=== PATIENT | male | born 1950 | race Caucasian/White ===

== ENCOUNTER → 2018-01-06 | Outpatient (CLI) | payer MEDICARE, MEDICAID ==
[~2018-01-06] MED LIST: AC325T PO; ASP325T PO; ASP81TEC PO; BNZ10T; BSP10T PO; CARV12.52; CATHETER FLUSH 10 ML SYR IV PRN; CLOP75TA; DIPH50CA PO; GBPN100C; GBPN300C PO; LISI20TA PO; LNS30CCR; LORA10CA PO; MULT-298 PO; NIAC1CAP PO; OMEG1CAP53 PO; OXYC-188; POLY119P PO; RAMI10CA; REGADENOSON 0.4 MG/5 ML SYR (LEXISCAN) IV ONE; RNT150T PO; SIMV40TA2 PO; SIMV80TA3; SUCR1TAB; miralax PO
[2018-01-06 09:29] VITALS: BP 193/114
--- NOTE | 2018-01-06 19:23 | STRESS TEST ---
DATE OF SERVICE: 01/06/2018 LEXISCAN MYOVIEW STRESS TEST REPORT REFERRING PHYSICIAN: Dr. Lj Cardozo at [facility]. Baseline heart rate is 85. Baseline blood pressure 199/113. Baseline EKG is sinus rhythm with no ischemic changes. In summary, the patient was injected with 10.52 mCi of technetium-99 Myoview and the resting images were obtained. Then, the patient received 0.4 mg of Lexiscan followed by 31.1 mCi of technetium-99 Myoview. Throughout the test, there were no EKG changes. The resting and stress images were reviewed and compared in the short axis, horizontal long axis, and vertical long axis views. Review of the images showed diaphragmatic attenuation with mild decreased uptake at the mid to apical inferior wall and inferolateral wall. SSS is 6. SDS 6. TID value 0.9. On the gated images, the left ventricle appeared to be in normal size with normal contractility. Calculated ejection fraction 73%. CONCLUSION: 1. The patient tolerated Lexiscan well. 2. Baseline hypertension persisted throughout test. 3. Diaphragmatic attenuation with mild reversible ischemia involving the mid to apical inferior wall and inferolateral wall. 4. Normal left ventricular size with normal contractility. Calculated ejection fraction 73%. Job ID: [id number] DocumentID: [id number] Dictated Date: 01/06/2018 16:17:14 Human Capital Manager Date: 01/06/2018 18:40:45 Dictated By: HAN BLAKELY MD
== END ==
LOC: CARD 07:34
PROVIDERS: ATTEND Physician Assistant
DX: I25.10 Atherosclerotic heart disease of native coronary artery without angina pectoris (principal); I11.0 Hypertensive heart disease with heart failure; I50.9 Heart failure, unspecified; E78.5 Hyperlipidemia, unspecified
CPT/HCPCS: 78452; 93017

== ENCOUNTER 2018-02-26 07:23 | Day surgery (SDC) | payer MEDICARE, MEDICAID ==
[~2018-02-26] VITALS: Ht 175.3 cm; Wt 83.5 kg
[2018-02-26] VITALS (11 sets, daily range): BP systolic 120–183; BP diastolic 74–103
[~2018-02-26 07:23] MED LIST changes: -CATHETER FLUSH 10 ML SYR IV PRN; -REGADENOSON 0.4 MG/5 ML SYR (LEXISCAN) IV ONE
--- OUTSIDE RECORDS SUMMARY | 2018-02-26 07:26 | XMS REPORT ---
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
--- OUTSIDE RECORDS SUMMARY | 2018-02-26 07:26 | XMS REPORT ---
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
--- OUTSIDE RECORDS SUMMARY | 2018-02-26 07:26 | XMS REPORT ---
Author YESENIA Novak [facility] e[employer] Address Unknown Phone Unavailable Care Team Providers Care Binder Selector Name Role Phone YESENIA PUGA CP Unavailable Allergies, Adverse Reactions, Alerts Substance Reaction Event Type N.K.D.A. Info Not Available Non Drug Allergy Problems Problem Type Condition Code Onset Dates Condition Status Assessment Hyperlipidemia 272.4 Active Assessment Essential hypertension, benign 401.1 Active Problem Family history, Colonic polyps V18.51 [...] Instructions Start Date End Date Status Dosage Carvedilol [facility] [address]-87 12.5 MG Orally Twice a day 1 tablet Lisinopril [facility] [address]-39 2.5 MG Orally Once a day 1 tablet Neurontin [facility] [address]-50 800 MG Three times a day 1 Tablet by Oral route 3 times per day PRN for pain Aspirin [facility] [address]-08 325 mg December 29, 2012 take 1 tablet ( 325 mg) by oral route once daily Michael Bautistaetto [facility] [address]-41 500 mg Jun 02, 2013 not defined Multivitamins [facility] 68434-48517 Orally not defined Sucralfate [facility] [address]-57 1 GM Orally Twice a day 1 tablet on an empty stomach BusPIRone HCl [facility] [address]-79 10 MG Orally Twice a day Sep 14, 2015 1 tablet Ranitidine [facility] 0 Oral 1 tab Fish Oil [facility] [address]-13 1000 mg Oct 22, 2011 SIG: orally 2 times a day Glucosamine Relief [facility] 25[address]8688 1,000 mg December 29, 2012 1 Tablet 1 time per day Procedures Procedure Coding System Code Date COMPLETE CBC W/AUTO DIFF WBC CPT-4 34849 Sep 14, 2015 LIPID PANEL CPT-4 05444 Sep 14, 2015 Office Visit, Est Pt., Level 3 CPT-4 82410 Sep 14, 2015 VENIPUNCT, ROUTINE* CPT-4 85165 Sep 14, 2015 COMPREHEN METABOLIC PANEL CPT-4 64559 Sep 14, 2015 Vital Signs Date/Time: Sep 14, 2015 Temperature 97.0 F Weight 179.7 lbs Height 69 in BMI 26.53 Index Blood Pressure Diastolic 86 mmHg Blood Pressure Systolic 136 mmHg Cardiac Monitoring Heart Rate 76 bpm Results Name Result Date Reference Range Unit Abnormality Flag ROUTINE VENIPUNCTURE Summary Purpose [employer] Submission
--- OUTSIDE RECORDS SUMMARY | 2018-02-26 07:26 | XMS REPORT ---
Author Author СЕРГЕЙ BLANK [facility] e[employer] Address Unknown Phone Unavailable Care Team Providers Care Cs Associate Name Role Phone СЕРГЕЙ BLANK CP Unavailable [...] System Code Date SINGLE IMMUNIZATION ADMIN CPT-4 56480 Jul 25, 2016 FLUARIX QUAD P-FREE 3 AND UP .50 2015 CPT-4 21046 Jul 25, 2016 Results No Known Results Immunizations Vaccine Administration Date FLUARIX QUAD P-FREE 3 AND UP .50 2015Jul 25, 2016 Summary Purpose [employer]Works Submission
--- OUTSIDE RECORDS SUMMARY | 2018-02-26 07:28 | XMS REPORT | Continuity of Care Document ---
Author Author Formerly [facility], [facility] Address Unknown Phone Unavailable Allergies Active Description Code Type Severity Reaction Onset Reported/Identified Relationship to Patient Clinical Status Yes No Known Drug Allergies [id number] Drug Allergy Unknown N/A 05/03/2008 Medications There is no data. Problems Date Dx Coded Attending Type Code Diagnosis Diagnosed By 06/11/2008 DOMENICO JUSTICE DO V72.83 PRE-OPERATIVE EXAMINATION 06/11/2008 YESENIA PUGA APRN V72.83 PRE-OPERATIVE EXAMINATION 06/11/2008 V72.83 PRE- OPERATIVE EXAMINATION 06/11/2008 V72.83 PRE- OPERATIVE EXAMINATION 06/11/2008 V72.83 PRE- OPERATIVE EXAMINATION 06/11/2008 DOMENICO JUSTICE DO V72.83 PRE-OPERATIVE EXAMINATION 06/11/2008 YESENIA PUGA APRN V72.83 PRE-OPERATIVE EXAMINATION 03/08/2009 DOMENICO JUSTICE DO 338.4 PAIN CHRONIC SYNDROME 03/08/2009 YESENIA PUGA APRN 338.4 PAIN CHRONIC SYNDROME 03/08/2009 338.4 PAIN CHRONIC SYNDROME 03/08/2009 338.4 PAIN CHRONIC SYNDROME 03/08/2009 338.4 PAIN CHRONIC SYNDROME 03/08/2009 DOMENICO JUSTICE DO 338.4 PAIN CHRONIC SYNDROME 03/08/2009 YESENIA PUGA APRN 338.4 PAIN CHRONIC SYNDROME 06/29/2009 DOMENICO JUSTICE DO 787.20 difficulty swallowing (dysphagia) 06/29/2009 YESENIA PUGA APRN 787.20 difficulty swallowing (dysphagia) 06/29/2009 787.20 DIFFICULTY SWALLOWING (DYSPHAGIA) 06/29/2009 787.20 DIFFICULTY SWALLOWING (DYSPHAGIA) 06/29/2009 787.20 DIFFICULTY SWALLOWING (DYSPHAGIA) 06/29/2009 DOMENICO JUSTICE DO 787.20 DIFFICULTY SWALLOWING (DYSPHAGIA) 06/29/2009 YESENIA PUGA APRN 787.20 DIFFICULTY SWALLOWING (DYSPHAGIA) 02/24/2010 DOMENICO JUSTICE DO 300.00 ANXIETY UNSPEC 02/24/2010 DOMENICO JUSTICE DO 357.9 NEUROPATHY UNSP 02/24/2010 DOMENICO JUSTICE DO K 840.9 SPRAIN/STRAIN SHOULDER/ARM 02/24/2010 YESENIA PUGA APRN 300.00 ANXIETY UNSPEC 02/24/2010 YESENIA PUGA APRN 357.9 NEUROPATHY UNSP 02/24/2010 YESENIA PUGA APRN 840.9 SPRAIN/STRAIN SHOULDER/ARM 02/24/2010 300.00 ANXIETY UNSPEC 02/24/2010 357.9 NEUROPATHY UNSP 02/24/2010 840.9 SPRAIN/STRAIN SHOULDER/ARM 02/24/2010 300.00 ANXIETY UNSPEC 02/24/2010 357.9 NEUROPATHY UNSP 02/24/2010 840.9 SPRAIN/STRAIN SHOULDER/ARM 02/24/2010 300.00 ANXIETY UNSPEC 02/24/2010 357.9 NEUROPATHY UNSP 02/24/2010 840.9 SPRAIN/STRAIN SHOULDER/ARM 02/24/2010 DOMENICO JUSTICE DO K 300.00 ANXIETY UNSPEC 02/24/2010 DOMENICO JUSTICE DO K 357.9 NEUROPATHY UNSP 02/24/2010 DOMENICO JUSTICE DO K 840.9 SPRAIN/STRAIN SHOULDER/ARM 02/24/2010 YESENIA PUGA APRN 300.00 ANXIETY UNSPEC 02/24/2010 YESENIA PUGA APRN 357.9 NEUROPATHY UNSP 02/24/2010 YESENIA PUGA APRN 840.9 SPRAIN/STRAIN SHOULDER/ARM 06/30/2010 DOMENICO JUSTICE DO 414.00 CORONARY ATHEROSCLEROSIS OF UNSPECIFIED TYPE OF VESSEL [place] OR [place] 06/30/2010 YESENIA PUGA APRN 414.00 CORONARY ATHEROSCLEROSIS OF UNSPECIFIED TYPE OF VESSEL [place] OR GRAFT 06/30/2010 414.00 CORONARY ATHEROSCLEROSIS OF UNSPECIFIED TYPE OF VESSEL [place] OR GRAFT 06/30/2010 414.00 CORONARY ATHEROSCLEROSIS OF UNSPECIFIED TYPE OF VESSEL [place] OR GRAFT 06/30/2010 414.00 CORONARY ATHEROSCLEROSIS OF UNSPECIFIED TYPE OF VESSEL [place] OR GRAFT 06/30/2010 DOMENICO JUSTICE DO 414.00 CORONARY ATHEROSCLEROSIS OF UNSPECIFIED TYPE OF VESSEL [place] OR GRAFT 06/30/2010 YESENIA PUGA APRN 414.00 CORONARY ATHEROSCLEROSIS OF UNSPECIFIED TYPE OF VESSEL [place] OR GRAFT 09/22/2010 DOMENICO JUSTICE DO 608.9 UNSPECIFIED DISORDER OF MALE GENITAL ORGANS 09/22/2010 YESENIA PUGA APRN 608.9 UNSPECIFIED DISORDER OF MALE GENITAL ORGANS 09/22/2010 608.9 UNSPECIFIED DISORDER OF MALE GENITAL ORGANS 09/22/2010 608.9 UNSPECIFIED DISORDER OF MALE GENITAL ORGANS 09/22/2010 608.9 UNSPECIFIED DISORDER OF MALE GENITAL ORGANS 09/22/2010 DOMENICO JUSTICE DO 608.9 UNSPECIFIED DISORDER OF MALE GENITAL ORGANS 09/22/2010 YESENIA PUGA APRN 608.9 UNSPECIFIED DISORDER OF MALE GENITAL ORGANS 09/29/2010 DOMENICO JUSTICE DO K 604.90 ORCHITIS AND EPIDIDYMITIS UNSPECIFIED 09/29/2010 YESENIA PUGA APRN 604.90 ORCHITIS AND EPIDIDYMITIS UNSPECIFIED 09/29/2010 604.90 ORCHITIS AND EPIDIDYMITIS UNSPECIFIED 09/29/2010 604.90 ORCHITIS AND EPIDIDYMITIS UNSPECIFIED 09/29/2010 604.90 ORCHITIS AND EPIDIDYMITIS UNSPECIFIED 09/29/2010 DOMENICO JUSTICE DO K 604.90 ORCHITIS AND EPIDIDYMITIS UNSPECIFIED 09/29/2010 YESENIA PUGA APRN 604.90 ORCHITIS AND EPIDIDYMITIS UNSPECIFIED 11/01/2010 DOMENICO JUSTICE DO K 597.80 URETHRITIS UNSPECIFIED 11/01/2010 YESENIA PUGA APRN 597.80 URETHRITIS UNSPECIFIED 11/01/2010 597.80 URETHRITIS UNSPECIFIED 11/01/2010 597.80 URETHRITIS UNSPECIFIED 11/01/2010 597.80 URETHRITIS UNSPECIFIED 11/01/2010 DOMENICO JUSTICE DO K 597.80 URETHRITIS UNSPECIFIED 11/01/2010 YESENIA PUGA APRN 597.80 URETHRITIS UNSPECIFIED 11/15/2010 DOMENICO JUSTICE DO K V70.0 NORMAL ROUTINE HISTORY AND PHYSICAL 11/15/2010 YESENIA PUGA APRN V70.0 NORMAL ROUTINE HISTORY AND PHYSICAL 11/15/2010 V70.0 NORMAL ROUTINE HISTORY AND PHYSICAL 11/15/2010 V70.0 NORMAL ROUTINE HISTORY AND PHYSICAL 11/15/2010 V70.0 NORMAL ROUTINE HISTORY AND PHYSICAL 11/15/2010 DOMENICO JUSTICE DO K V70.0 NORMAL ROUTINE HISTORY AND PHYSICAL 11/15/2010 YESENIA PUGA APRN V70.0 NORMAL ROUTINE HISTORY AND PHYSICAL 04/06/2011 DOMENICO JUSTICE DO K 729.5 PAIN IN LIMB 04/06/2011 DOMENICO JUSTICE DO 788.1 DYSURIA 04/06/2011 YESENIA PUGA APRN 729.5 PAIN IN LIMB 04/06/2011 YESENIA PUGA APRN 788.1 DYSURIA 04/06/2011 729.5 PAIN IN LIMB 04/06/2011 788.1 DYSURIA 04/06/2011 729.5 PAIN IN LIMB 04/06/2011 788.1 DYSURIA 04/06/2011 729.5 PAIN IN LIMB 04/06/2011 788.1 DYSURIA 04/06/2011 DOMENICO JUSTICE DO 729.5 PAIN IN LIMB 04/06/2011 DOMENICO JUSTICE DO 788.1 DYSURIA 04/06/2011 YESENIA PUGA APRN 729.5 PAIN IN LIMB 04/06/2011 YESENIA PUGA APRN 788.1 DYSURIA 11/05/2011 DOMENICO JUSTICE DO V18.51 FAMILY HISTORY OF COLONIC POLYPS 11/05/2011 DOMENICO JUSTICE DO V76.51 SPECIAL SCREENING FOR MALIGNANT NEOPLASMS COLON 11/05/2011 YESENIA PUGA APRN V18.51 FAMILY HISTORY OF COLONIC POLYPS 11/05/2011 YESENIA PUGA APRN V76.51 SPECIAL SCREENING FOR MALIGNANT NEOPLASMS COLON 11/05/2011 V18.51 FAMILY HISTORY OF COLONIC POLYPS 11/05/2011 V76.51 SPECIAL SCREENING FOR MALIGNANT NEOPLASMS COLON 11/05/2011 V18.51 FAMILY HISTORY OF COLONIC POLYPS 11/05/2011 V76.51 SPECIAL SCREENING FOR MALIGNANT NEOPLASMS COLON 11/05/2011 V18.51 FAMILY HISTORY OF COLONIC POLYPS 11/05/2011 V76.51 SPECIAL SCREENING FOR MALIGNANT NEOPLASMS COLON 11/05/2011 DOMENICO JUSTICE DO V18.51 FAMILY HISTORY OF COLONIC POLYPS 11/05/2011 DOMENICO JUSTICE DO V76.51 SPECIAL SCREENING FOR MALIGNANT NEOPLASMS COLON 11/05/2011 YESENIA PUGA APRN V18.51 FAMILY HISTORY OF COLONIC POLYPS 11/05/2011 YESENIA PUGA APRN V76.51 SPECIAL SCREENING FOR MALIGNANT NEOPLASMS COLON 06/19/2012 Ot 401.1 BENIGN HYPERTENSION 06/19/2012 Ot 414.00 CORON ATHEROSCLER NOS TYPE VESSEL, NATIV 06/19/2012 Ot 433.10 CAROTID ARTERY OCCLUSION W O CEREBRAL IN 06/19/2012 Ot 440.20 ATHEROSCLEROSIS [place] ARTERIES EXTREMIT 06/19/2012 Ot V15.82 HISTORY OF TOBACCO USE 04/06/2013 790.29 HYPERGLYCEMIA 04/06/2013 790.29 HYPERGLYCEMIA 04/06/2013 790.29 HYPERGLYCEMIA 04/06/2013 DOMENICO JUSTICE DO 790.29 HYPERGLYCEMIA 04/06/2013 YESENIA PUGA APRN 790.29 HYPERGLYCEMIA 06/26/2013 608.9 UNSPECIFIED DISORDER OF MALE GENITAL ORGANS 06/26/2013 DOMENICO JUSTICE DO 608.9 UNSPECIFIED DISORDER OF MALE GENITAL ORGANS 06/26/2013 YESENIA PUGA APRN 608.9 UNSPECIFIED DISORDER OF MALE GENITAL ORGANS 07/07/2013 DOMENICO JUSTICE DO V04.81 FLU SHOT 07/07/2013 YESENIA PUGA APRN V04.81 FLU SHOT 11/19/2014 YESENIA PUGA APRN 401.1 HYPERTENSION, BENIGN ESSENTIAL 11/19/2014 YESENIA PUGA APRN V03.82 PPV23 (PNEUMOVAX) DX 07/15/2015 GENOVEVA CHAVEZ Ot 272.4 07/15/2015 GENOVEVA CHAVEZ Ot 401.9 07/15/2015 GENOVEVA CHAVEZ Ot 414.9 07/15/2015 GENOVEVA CHAVEZ Ot 428.0 2016 Ot 401.9 HYPERTENSION NOS 2016 Ot 414.00 CORON ATHEROSCLER NOS TYPE VESSEL, NATIV 2016 Ot 401.9 HYPERTENSION NOS 2016 Ot 414.00 CORON ATHEROSCLER NOS TYPE VESSEL, NATIV 2016 Ot 433.10 CAROTID ARTERY OCCLUSION W O CEREBRAL IN 2016 Ot V72.63 PRE- PROCEDURAL LABORATORY EXAMINATION 2016 Ot V72.83 EXAM PRE- OPERATIVE NEC 2016 Ot V74.8 SCREEN- BACTERIAL DIS NEC 2016 Ot 401.9 HYPERTENSION NOS 2016 Ot 428.0 CONGESTIVE HEART FAILURE NOS 2016 REDDY PEREIRA, HAN Navarro Ot 272.4 HYPERLIPIDEMIA NEC/NOS 2016 HAN BLAKELY MD Ot 397.0 TRICUSPID VALVE DISEASE 2016 HAN BLAKELY MD Ot 401.9 HYPERTENSION NOS 2016 HAN BLAKELY MD Ot 414.00 CORON ATHEROSCLER NOS TYPE VESSEL, NATIV 2016 REDDY PEREIRA, HAN Navarro Ot 428.0 CONGESTIVE HEART FAILURE NOS 2016 REDDY PEREIRA, HAN Navarro Ot 414.01 CORONARY ATHEROSCLEROSIS OF [place] CORON 2016 HAN BLAKELY MD Ot 428.0 CONGESTIVE HEART FAILURE NOS 2016 GENOVEVA CHAVEZ Ot 272.4 HYPERLIPIDEMIA NEC/NOS 2016 GENOVEVA CHAVEZ Ot 401.9 HYPERTENSION NOS 2016 GENOVEVA CHAVEZ Ot 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 HRT DIS NOS 2016 GENOVEVA CHAVEZ Ot 428.0 CONGESTIVE HEART FAILURE NOS 06/15/2016 GENOVEVA CHAVEZ Ot E78.2 MIXED HYPERLIPIDEMIA 06/15/2016 GENOVEVA CHAVEZ Ot I25.10 ATHSCL HEART DISEASE OF [place] CORONARY 06/15/2016 GENOVEVA CHAVEZ Ot I50.22 CHRONIC SYSTOLIC (CONGESTIVE) HEART FAIL 06/15/2016 GENOVEVA CHAVEZ Ot I65.23 OCCLUSION AND STENOSIS OF [place] 06/29/2016 GENOVEVA CHAVEZ Ot E78.2 MIXED HYPERLIPIDEMIA 06/29/2016 GENOVEVA CHAVEZ Ot I25.10 ATHSCL HEART DISEASE OF [place] CORONARY 06/29/2016 GENOVEVA CHAVEZ Ot I50.22 CHRONIC SYSTOLIC (CONGESTIVE) HEART FAIL 06/29/2016 GENOVEVA CHAVEZ Ot I65.23 OCCLUSION AND STENOSIS OF [place] 07/17/2016 GENOVEVA CHAVEZ Ot I65.22 OCCLUSION AND STENOSIS OF LEFT CAROTID A 07/18/2016 Ot 401.9 HYPERTENSION NOS 07/18/2016 Ot 414.00 CORON ATHEROSCLER NOS TYPE VESSEL, NATIV 07/18/2016 Ot 401.9 HYPERTENSION NOS 07/18/2016 Ot 414.00 CORON ATHEROSCLER NOS TYPE VESSEL, NATIV 07/18/2016 Ot 433.10 CAROTID ARTERY OCCLUSION W O CEREBRAL IN 07/18/2016 Ot V72.63 PRE- PROCEDURAL LABORATORY EXAMINATION 07/18/2016 Ot V72.83 EXAM PRE- OPERATIVE NEC 07/18/2016 Ot V74.8 SCREEN- BACTERIAL DIS NEC 07/18/2016 Ot 401.9 HYPERTENSION NOS 07/18/2016 Ot 428.0 CONGESTIVE HEART FAILURE NOS 07/18/2016 HAN BLAKELY MD Ot 272.4 HYPERLIPIDEMIA NEC/NOS 07/18/2016 HAN BLAKELY MD Ot 397.0 TRICUSPID VALVE DISEASE 07/18/2016 HAN BLAKELY MD Ot 401.9 HYPERTENSION NOS 07/18/2016 HAN BLAKELY MD Ot 414.00 CORON ATHEROSCLER NOS TYPE VESSEL, NATIV 07/18/2016 HAN BLAKELY MD Ot 428.0 CONGESTIVE HEART FAILURE NOS 07/18/2016 HAN BLAKELY MD Ot 414.01 CORONARY ATHEROSCLEROSIS OF [place] CORON 07/18/2016 HAN BLAKELY MD Ot 428.0 CONGESTIVE HEART FAILURE NOS 07/18/2016 GENOVEVA CHAVEZ Ot 272.4 HYPERLIPIDEMIA NEC/NOS 07/18/2016 GENOVEVA CHAVZE Ot 401.9 HYPERTENSION NOS 07/18/2016 GENOVEVA CHAVEZ Ot 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 HRT DIS NOS 07/18/2016 GENOVEVA CHAVEZ Ot 428.0 CONGESTIVE HEART FAILURE NOS 07/18/2016 GENOVEVA CHAVEZ Ot I65.22 OCCLUSION AND STENOSIS OF LEFT CAROTID A 07/18/2016 GENOVEVA CHAVEZ Ot E78.2 MIXED HYPERLIPIDEMIA 07/18/2016 GENOVEVA CHAVEZ Ot I25.10 ATHSCL HEART DISEASE OF [place] CORONARY 07/18/2016 GENOVEVA CHAVEZ Ot I50.22 CHRONIC SYSTOLIC (CONGESTIVE) HEART FAIL 07/18/2016 GENOVEVA CHAVEZ Ot I65.23 OCCLUSION AND STENOSIS OF [place] 09/06/2016 Ot 401.9 HYPERTENSION NOS 09/06/2016 Ot 414.00 CORON ATHEROSCLER NOS TYPE VESSEL, NATIV 09/06/2016 Ot 401.9 HYPERTENSION NOS 09/06/2016 Ot 414.00 CORON ATHEROSCLER NOS TYPE VESSEL, NATIV 09/06/2016 Ot 433.10 CAROTID ARTERY OCCLUSION W O CEREBRAL IN 09/06/2016 Ot V72.63 PRE- PROCEDURAL LABORATORY EXAMINATION 09/06/2016 Ot V72.83 EXAM PRE- OPERATIVE NEC 09/06/2016 Ot V74.8 SCREEN- BACTERIAL DIS NEC 09/06/2016 Ot 401.9 HYPERTENSION NOS 09/06/2016 Ot 428.0 CONGESTIVE HEART FAILURE NOS 09/06/2016 HAN BLAKELY MD Ot 272.4 HYPERLIPIDEMIA NEC/NOS 09/06/2016 HAN BLAKELY MD Ot 397.0 TRICUSPID VALVE DISEASE 09/06/2016 HAN BLAKELY MD Ot 401.9 HYPERTENSION NOS 09/06/2016 HAN BLAKELY MD Ot 414.00 CORON ATHEROSCLER NOS TYPE VESSEL, NATIV 09/06/2016 HAN BLAKELY MD Ot 428.0 CONGESTIVE HEART FAILURE NOS 09/06/2016 HAN BLAKELY MD Ot 414.01 CORONARY ATHEROSCLEROSIS OF [place] CORON 09/06/2016 HAN BLAKELY MD Ot 428.0 CONGESTIVE HEART FAILURE NOS 09/06/2016 GENOVEVA CHAVEZ Ot 272.4 HYPERLIPIDEMIA NEC/NOS 09/06/2016 GENOVEVA CHAVEZ Ot 401.9 HYPERTENSION NOS 09/06/2016 GENOVEVA CHAVEZ Ot 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 HRT DIS NOS 09/06/2016 GENOVEVA CHAVEZ Ot 428.0 CONGESTIVE HEART FAILURE NOS 09/06/2016 GENOVEVA CHAVEZ Ot I65.22 OCCLUSION AND STENOSIS OF LEFT CAROTID A 09/06/2016 GENOVEVA CHAVEZ Ot E78.2 MIXED HYPERLIPIDEMIA 09/06/2016 GENOVEVA CHAVEZ Ot I25.10 ATHSCL HEART DISEASE OF [place] CORONARY 09/06/2016 GENOVEVA CHAVEZ Ot I50.22 CHRONIC SYSTOLIC (CONGESTIVE) HEART FAIL 09/06/2016 GENOVEVA CHAVEZ Ot I65.23 OCCLUSION AND STENOSIS OF [place] 10/07/2016 Ot 401.9 HYPERTENSION NOS 10/07/2016 Ot 414.00 CORON ATHEROSCLER NOS TYPE VESSEL, NATIV 10/07/2016 Ot 401.9 HYPERTENSION NOS 10/07/2016 Ot 414.00 CORON ATHEROSCLER NOS TYPE VESSEL, NATIV 10/07/2016 Ot 433.10 CAROTID ARTERY OCCLUSION W O CEREBRAL IN 10/07/2016 Ot V72.63 PRE- PROCEDURAL LABORATORY EXAMINATION 10/07/2016 Ot V72.83 EXAM PRE- OPERATIVE NEC 10/07/2016 Ot V74.8 SCREEN- BACTERIAL DIS NEC 10/07/2016 Ot 401.9 HYPERTENSION NOS 10/07/2016 Ot 428.0 CONGESTIVE HEART FAILURE NOS 10/07/2016 HAN BLAKELY MD Ot 272.4 HYPERLIPIDEMIA NEC/NOS 10/07/2016 HAN BLAKELY MD Ot 397.0 TRICUSPID VALVE DISEASE 10/07/2016 HAN BLAKELY MD Ot 401.9 HYPERTENSION NOS 10/07/2016 HAN BLAKELY MD Ot 414.00 CORON ATHEROSCLER NOS TYPE VESSEL, NATIV 10/07/2016 HAN BLAKELY MD Ot 428.0 CONGESTIVE HEART FAILURE NOS 10/07/2016 HAN BLAKELY MD Ot 414.01 CORONARY ATHEROSCLEROSIS OF [place] CORON 10/07/2016 HAN BLAKELY MD Ot 428.0 CONGESTIVE HEART FAILURE NOS 10/07/2016 GENOVEVA CHAVEZ Ot 272.4 HYPERLIPIDEMIA NEC/NOS 10/07/2016 GENOVEVA CHAVEZ Ot 401.9 HYPERTENSION NOS 10/07/2016 GENOVEVA CHAVEZ Ot 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 HRT DIS NOS 10/07/2016 GENOVEVA CHAVEZ Ot 428.0 CONGESTIVE HEART FAILURE NOS 10/07/2016 GENOVEVA CHAVEZ Ot I65.22 OCCLUSION AND STENOSIS OF LEFT CAROTID A 10/07/2016 GENOVEVA CHAVEZ Ot E78.2 MIXED HYPERLIPIDEMIA 10/07/2016 GENOVEVA CHAVEZ Ot I25.10 ATHSCL HEART DISEASE OF [place] CORONARY 10/07/2016 GENOVEVA CHAVEZ Ot I50.22 CHRONIC SYSTOLIC (CONGESTIVE) HEART FAIL 10/07/2016 GENOVEVA CHAVEZ Ot I65.23 OCCLUSION AND STENOSIS OF [place] 10/08/2016 GENOVEVA CHAVEZ Ot E78.2 MIXED HYPERLIPIDEMIA 10/08/2016 GENOVEVA CHAVEZ Ot I25.10 ATHSCL HEART DISEASE OF [place] CORONARY 10/08/2016 GENOVEVA CHAVEZ Ot I50.22 CHRONIC SYSTOLIC (CONGESTIVE) HEART FAIL 10/08/2016 GENOVEVA CHAVEZ Ot I65.23 OCCLUSION AND STENOSIS OF [place]AL [place] 10/08/2016 Ot 401.9 HYPERTENSION NOS 10/08/2016 Ot 414.00 CORON ATHEROSCLER NOS TYPE VESSEL, NATIV 10/08/2016 Ot 401.9 HYPERTENSION NOS 10/08/2016 Ot 414.00 CORON ATHEROSCLER NOS TYPE VESSEL, NATIV 10/08/2016 Ot 433.10 CAROTID ARTERY OCCLUSION W O CEREBRAL IN 10/08/2016 Ot V72.63 PRE- PROCEDURAL LABORATORY EXAMINATION 10/08/2016 Ot V72.83 EXAM PRE- OPERATIVE NEC 10/08/2016 Ot V74.8 SCREEN- BACTERIAL DIS NEC 10/08/2016 Ot 401.9 HYPERTENSION NOS 10/08/2016 Ot 428.0 CONGESTIVE HEART FAILURE NOS 10/08/2016 REDDY PEREIRA, HAN Navarro Ot 272.4 HYPERLIPIDEMIA NEC/NOS 10/08/2016 HAN BLAKELY MD Ot 397.0 TRICUSPID VALVE DISEASE 10/08/2016 HAN BLAKELY MD Ot 401.9 HYPERTENSION NOS 10/08/2016 REDDY PEREIRA, HAN Navarro Ot 414.00 CORON ATHEROSCLER NOS TYPE VESSEL, NATIV 10/08/2016 REDDY PEREIRA, HAN Navarro Ot 428.0 CONGESTIVE HEART FAILURE NOS 10/08/2016 REDDY PEREIRA, HAN Navarro Ot 414.01 CORONARY ATHEROSCLEROSIS OF [place] CORON 10/08/2016 HAN BLAKELY MD Ot 428.0 CONGESTIVE HEART FAILURE NOS 10/08/2016 GENOVEVA CHAVEZ Ot 272.4 HYPERLIPIDEMIA NEC/NOS 10/08/2016 GENOVEVA CHAVEZ Ot 401.9 HYPERTENSION NOS 10/08/2016 GENOVEVA CHAVEZ Ot 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 HRT DIS NOS 10/08/2016 GENOVEVA CHAVEZ Ot 428.0 CONGESTIVE HEART FAILURE NOS 10/08/2016 GENOVEVA CHAVEZ Ot I65.22 OCCLUSION AND STENOSIS OF LEFT CAROTID A 10/08/2016 GENOVEVA CHAVEZ Ot E78.2 MIXED HYPERLIPIDEMIA 10/08/2016 GENOVEVA CHAVEZ Ot I25.10 ATHSCL HEART DISEASE OF [place] CORONARY 10/08/2016 GENOVEVA CHAVEZ Ot I50.22 CHRONIC SYSTOLIC (CONGESTIVE) HEART FAIL 10/08/2016 GENOVEVA CHAVEZ Ot I65.23 OCCLUSION AND STENOSIS OF [place] 10/09/2016 GENOVEVA CHAVEZ Ot E78.2 MIXED HYPERLIPIDEMIA 10/09/2016 GENOVEVA CHAVEZ Ot I25.10 ATHSCL HEART DISEASE OF [place] CORONARY 10/09/2016 GENOVEVA CHAVEZ Ot I50.22 CHRONIC SYSTOLIC (CONGESTIVE) HEART FAIL 10/09/2016 GENOVEVA CHAVEZ Ot I65.23 OCCLUSION AND STENOSIS OF [place] 10/23/2016 GENOVEVA CHAVEZ Ot I65.22 OCCLUSION AND STENOSIS OF LEFT CAROTID A 11/09/2016 Ot 401.9 HYPERTENSION NOS 11/09/2016 Ot 414.00 CORON ATHEROSCLER NOS TYPE VESSEL, NATIV 11/09/2016 Ot 401.9 HYPERTENSION NOS 11/09/2016 Ot 414.00 CORON ATHEROSCLER NOS TYPE VESSEL, NATIV 11/09/2016 Ot 433.10 CAROTID ARTERY OCCLUSION W O CEREBRAL IN 11/09/2016 Ot V72.63 PRE- PROCEDURAL LABORATORY EXAMINATION 11/09/2016 Ot V72.83 EXAM PRE- OPERATIVE NEC 11/09/2016 Ot V74.8 SCREEN- BACTERIAL DIS NEC 11/09/2016 Ot 401.9 HYPERTENSION NOS 11/09/2016 Ot 428.0 CONGESTIVE HEART FAILURE NOS 11/09/2016 HAN BLAKELY MD Ot 272.4 HYPERLIPIDEMIA NEC/NOS 11/09/2016 HAN BLAKELY MD Ot 397.0 TRICUSPID VALVE DISEASE 11/09/2016 HAN BLAKELY MD Ot 401.9 HYPERTENSION NOS 11/09/2016 HAN BLAKELY MD Ot 414.00 CORON ATHEROSCLER NOS TYPE VESSEL, NATIV 11/09/2016 HAN BLAKELY MD Ot 428.0 CONGESTIVE HEART FAILURE NOS 11/09/2016 HAN BLAKELY MD Ot 414.01 CORONARY ATHEROSCLEROSIS OF [place] CORON 11/09/2016 HAN BLAKELY MD Ot 428.0 CONGESTIVE HEART FAILURE NOS 11/09/2016 GENOVEVA CHAVEZ Ot 272.4 HYPERLIPIDEMIA NEC/NOS 11/09/2016 GENOVEVA CHAVEZ Ot 401.9 HYPERTENSION NOS 11/09/2016 GENOVEVA CHAVEZ Ot 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 HRT DIS NOS 11/09/2016 GENOVEVA CHAVEZ Ot 428.0 CONGESTIVE HEART FAILURE NOS 11/09/2016 JOSE F FLOWERS GENOVEVA K Ot I65.22 OCCLUSION AND STENOSIS OF LEFT CAROTID A 11/09/2016 GENOVEVA CHAVEZ Ot E78.2 MIXED HYPERLIPIDEMIA 11/09/2016 JOSE F FLOWERS GENOVEVA K Ot I25.10 ATHSCL HEART DISEASE OF [place] CORONARY 11/09/2016 JOSE F FLOWERS GENOVEVA K Ot I50.22 CHRONIC SYSTOLIC (CONGESTIVE) HEART FAIL 11/09/2016 JOSE F FLOWERS GENOVEVA K Ot I65.23 OCCLUSION AND STENOSIS OF [place] 11/10/2016 GENOVEVA CHAVEZ Ot E78.2 MIXED HYPERLIPIDEMIA 11/10/2016 JOSE F FLOWERS GENOVEVA K Ot I25.10 ATHSCL HEART DISEASE OF [place] CORONARY 11/10/2016 JOSE F FLOWERS GENOVEVA K Ot I50.22 CHRONIC SYSTOLIC (CONGESTIVE) HEART FAIL 11/10/2016 JOSE F FLOWERS GENOVEVA K Ot I65.23 OCCLUSION AND STENOSIS OF [place] 11/18/2017 Ot 433.10 CAROTID ARTERY OCCLUSION W O CEREBRAL IN 11/18/2017 Ot V72.63 PRE- PROCEDURAL LABORATORY EXAMINATION 11/18/2017 Ot V72.83 EXAM PRE- OPERATIVE NEC 11/18/2017 Ot V74.8 SCREEN- BACTERIAL DIS NEC 11/18/2017 Ot 401.9 HYPERTENSION NOS 11/18/2017 Ot 428.0 CONGESTIVE HEART FAILURE NOS 11/18/2017 HAN BLAKELY MD Ot 272.4 HYPERLIPIDEMIA NEC/NOS 11/18/2017 HAN BLAKELY MD Ot 397.0 TRICUSPID VALVE DISEASE 11/18/2017 HAN BLAKELY MD Ot 401.9 HYPERTENSION NOS 11/18/2017 HAN BLAKELY MD Ot 414.00 CORON ATHEROSCLER NOS TYPE VESSEL, NATIV 11/18/2017 HAN BLAKELY MD Ot 428.0 CONGESTIVE HEART FAILURE NOS 11/18/2017 HAN BLAKELY MD Ot 414.01 CORONARY ATHEROSCLEROSIS OF [place] CORON 11/18/2017 HAN BLAKELY MD Ot 428.0 CONGESTIVE HEART FAILURE NOS 11/18/2017 GENOVEVA CHAVEZ Ot 272.4 HYPERLIPIDEMIA NEC/NOS 11/18/2017 GENOVEVA CHAVEZ Ot 401.9 HYPERTENSION NOS 11/18/2017 GENOVEVA CHAVEZ Ot 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 HRT DIS NOS 11/18/2017 GENOVEVA CHAVEZ Ot 428.0 CONGESTIVE HEART FAILURE NOS 11/18/2017 GENOVEVA CHAVEZ Ot I65.22 OCCLUSION AND STENOSIS OF LEFT CAROTID A 11/18/2017 GENOVEVA CHAVEZ Ot E78.2 MIXED HYPERLIPIDEMIA 11/18/2017 GENOVEVA CHAVEZ Ot I25.10 ATHSCL HEART DISEASE OF [place] CORONARY 11/18/2017 GENOVEVA CHAVEZ Ot I50.22 CHRONIC SYSTOLIC (CONGESTIVE) HEART FAIL 11/18/2017 GENOVEVA CHAVEZ Ot I65.23 OCCLUSION AND STENOSIS OF [place] 11/19/2017 Ot 433.10 CAROTID ARTERY OCCLUSION W O CEREBRAL IN 11/19/2017 Ot V72.63 PRE- PROCEDURAL LABORATORY EXAMINATION 11/19/2017 Ot V72.83 EXAM PRE- OPERATIVE NEC 11/19/2017 Ot V74.8 SCREEN- BACTERIAL DIS NEC 11/19/2017 Ot 401.9 HYPERTENSION NOS 11/19/2017 Ot 428.0 CONGESTIVE HEART FAILURE NOS 11/19/2017 HAN BLAEKLY MD Ot 272.4 HYPERLIPIDEMIA NEC/NOS 11/19/2017 HAN BLAKELY MD Ot 397.0 TRICUSPID VALVE DISEASE 11/19/2017 HAN BLAKELY MD Ot 401.9 HYPERTENSION NOS 11/19/2017 HAN BLAKELY MD Ot 414.00 CORON ATHEROSCLER NOS TYPE VESSEL, NATIV 11/19/2017 HAN BLAKELY MD Ot 428.0 CONGESTIVE HEART FAILURE NOS 11/19/2017 HAN BLAKELY MD Ot 414.01 CORONARY ATHEROSCLEROSIS OF [place] CORON 11/19/2017 HAN BLAKELY MD Ot 428.0 CONGESTIVE HEART FAILURE NOS 11/19/2017 GENOVEVA CHAVEZ Ot 272.4 HYPERLIPIDEMIA NEC/NOS 11/19/2017 GENOVEVA CHAVEZ Ot 401.9 HYPERTENSION NOS 11/19/2017 GENOVEVA CHAVEZ Ot 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 HRT DIS NOS 11/19/2017 GENOVEVA CHAVEZ Ot 428.0 CONGESTIVE HEART FAILURE NOS 11/19/2017 GENOVEVA CHAVEZ Ot I65.22 OCCLUSION AND STENOSIS OF LEFT [place] A 11/19/2017 GENOVEVA HCAVEZ Ot E78.2 MIXED HYPERLIPIDEMIA 11/19/2017 GENOVEVA CHAVEZ Ot I25.10 ATHSCL HEART DISEASE OF [place] CORONARY 11/19/2017 GENOVEVA CHAVEZ Ot I50.22 CHRONIC SYSTOLIC (CONGESTIVE) HEART FAIL 11/19/2017 GENOVEVA CHAVEZ Ot I65.23 OCCLUSION AND STENOSIS OF [place] 01/06/2018 Ot 401.9 HYPERTENSION NOS 01/06/2018 Ot 428.0 CONGESTIVE HEART FAILURE NOS 01/06/2018 REDDY PEREIRA, HAN J Ot 272.4 HYPERLIPIDEMIA NEC/NOS 01/06/2018 REDDY PEREIRA, HAN J Ot 397.0 TRICUSPID VALVE DISEASE 01/06/2018 REDDY PEREIRA, HAN J Ot 401.9 HYPERTENSION NOS 01/06/2018 REDDY PEREIRA, HAN J Ot 414.00 CORON ATHEROSCLER NOS TYPE VESSEL, [place] 01/06/2018 REDDY PEREIRA, HAN J Ot 428.0 CONGESTIVE HEART FAILURE NOS 01/06/2018 REDDY PEREIRA, HAN J Ot 414.01 CORONARY ATHEROSCLEROSIS OF [place] CORON 01/06/2018 REDDY PEREIRA, HAN J Ot 428.0 CONGESTIVE HEART FAILURE NOS 01/06/2018 GENOVEVA CHAVEZ Ot 272.4 HYPERLIPIDEMIA NEC/NOS 01/06/2018 GENOVEVA CHAVEZ Ot 401.9 HYPERTENSION NOS 01/06/2018 GENOVEVA CHAVEZ Ot 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 HRT DIS NOS 01/06/2018 GENOVEVA CHAVEZ Ot 428.0 CONGESTIVE HEART FAILURE NOS 01/06/2018 GENOVEVA CHAVEZ Ot I65.22 OCCLUSION AND STENOSIS OF LEFT CAROTID A 01/06/2018 GENOVEVA CHAVEZ Ot E78.2 MIXED HYPERLIPIDEMIA 01/06/2018 GENOVEVA CHAVEZ Ot I25.10 ATHSCL HEART DISEASE OF [place] CORONARY 01/06/2018 GENOVEVA CHAVEZ Ot I50.22 CHRONIC SYSTOLIC (CONGESTIVE) HEART FAIL 01/06/2018 LOWERY-MILAN FLOWERS GENOVEVA Pily Ot I65.23 OCCLUSION AND STENOSIS OF [place] 01/07/2018 LOWERYKAVIN FLOWERS GENOVEVA K Ot E78.5 HYPERLIPIDEMIA, UNSPECIFIED 01/07/2018 [place] FLOW[place] GENOVEVA Pily Ot I11.0 HYPERTENSIVE HEART DISEASE WITH HEART FA 01/07/2018 [place] FLOW[place] GENOVEVA Pily Ot I25.10 ATHSCL HEART DISEASE OF [place] CORONARY 01/07/2018 L[place]-M[place] FLOWERS GENOVEVA Pily Ot I50.9 HEART FAILURE, UNSPECIFIED 01/12/2018 LOWERYKAVIN FLOWERS GENOVEVA K Ot E78.5 HYPERLIPIDEMIA, UNSPECIFIED 01/12/2018 [place] FLOWERS GENOVEVA K Ot I11.0 HYPERTENSIVE HEART DISEASE WITH HEART FA 01/12/2018 L[place] FLOWERS GENOVEVA K Ot I25.10 ATHSCL HEART DISEASE OF [place] CORONARY 01/12/2018 LOWERYKAVIN FLOWERS GENOVEVA Pily Ot I50.9 HEART FAILURE, UNSPECIFIED 01/28/2018 LOW[place]-MIL[place] FLOWERS GENOVEVA Pily Ot E78.5 HYPERLIPIDEMIA, UNSPECIFIED 01/28/2018 L[place]-M[place] FLOWERS GENOVEVA K Ot I11.0 HYPERTENSIVE HEART DISEASE WITH HEART FA 01/28/2018 L[place] FLOWERS GENOVEVA Pily Ot I25.10 ATHSCL HEART DISEASE OF [place] CORONARY 01/28/2018 LOWERYKAVIN FLOWERS GENOVEVA Pily Ot I50.9 HEART FAILURE, UNSPECIFIED 01/29/2018 Ot 401.9 HYPERTENSION NOS 01/29/2018 Ot 428.0 CONGESTIVE HEART FAILURE NOS 01/29/2018 HAN BLAKELY MD Ot 272.4 HYPERLIPIDEMIA NEC/NOS 01/29/2018 HAN BLAKELY MD Ot 397.0 TRICUSPID VALVE DISEASE 01/29/2018 HAN BLAKELY MD Ot 401.9 HYPERTENSION NOS 01/29/2018 HAN BLAKEYL MD Ot 414.00 CORON ATHEROSCLER NOS TYPE VESSEL, NATIV 01/29/2018 HAN BLAKELY MD Ot 428.0 CONGESTIVE HEART FAILURE NOS 01/29/2018 HAN BLAKELY MD Ot 414.01 CORONARY ATHEROSCLEROSIS OF [place] CORON 01/29/2018 HAN BLAKELY MD Ot 428.0 CONGESTIVE HEART FAILURE NOS 01/29/2018 GENOVEVA CHAVEZ Ot 272.4 HYPERLIPIDEMIA NEC/NOS 01/29/2018 GENOVEVA CHAVEZ Ot 401.9 HYPERTENSION NOS 01/29/2018 GENOVEVA CHAVEZ Ot 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 HRT DIS NOS 01/29/2018 GENOVEVA CHAVEZ Ot 428.0 CONGESTIVE HEART FAILURE NOS 01/29/2018 GENOVEVA CHAVEZ Ot I65.22 OCCLUSION AND STENOSIS OF LEFT CAROTID A 01/29/2018 GENOVEVA CHAVEZ Ot E78.2 MIXED HYPERLIPIDEMIA 01/29/2018 GENOVEVA CHAVEZ Ot I25.10 ATHSCL HEART DISEASE OF [place] CORONARY 01/29/2018 GENOVEVA CHAVEZ Ot I50.22 CHRONIC SYSTOLIC (CONGESTIVE) HEART FAIL 01/29/2018 GENOVEVA CHAVEZ Ot I65.23 OCCLUSION AND STENOSIS OF [place] 01/29/2018 GENOVEVA CHAVEZ Ot E78.5 HYPERLIPIDEMIA, UNSPECIFIED 01/29/2018 GENOVEVA CHAVEZ Ot I11.0 HYPERTENSIVE HEART DISEASE WITH HEART FA 01/29/2018 GENOVEVA CHAVEZ Ot I25.10 ATHSCL HEART DISEASE OF [place] CORONARY 01/29/2018 GENOVEVA CHAVEZ Ot I50.9 HEART FAILURE, UNSPECIFIED 02/04/2018 GENOVEVA CHAVEZ Ot E78.5 HYPERLIPIDEMIA, UNSPECIFIED 02/04/2018 GENOVEVA CHAVEZ Ot I11.0 HYPERTENSIVE HEART DISEASE WITH HEART FA 02/04/2018 GENOVEVA CHAVEZ Ot I25.10 ATHSCL HEART DISEASE OF [place] CORONARY 02/04/2018 GENOVEVA CHAVEZ Ot I50.9 HEART FAILURE, UNSPECIFIED 02/14/2018 GENOVEVA CHAVEZ Ot E78.5 HYPERLIPIDEMIA, UNSPECIFIED 02/14/2018 GENOVEVA CHAVEZ Ot I11.0 HYPERTENSIVE HEART DISEASE WITH HEART FA 02/14/2018 GENOVEVA CHAVEZ Ot I25.10 ATHSCL HEART DISEASE OF [place] CORONARY 02/14/2018 GENOVEVA CHAVEZ Ot I50.9 HEART FAILURE, UNSPECIFIED Procedures Code Description Performed By Performed On 00.40 PROCEDURE ON SINGLE VESSEL 06/18/2012 38.12 HEAD NECK ENDARTER NEC 06/18/2012 50207 A1C (IN-HOUSE) 04/06/2013 Results Test Result Range [id number] - 07/16/16 09:15 Serum or plasma urea nitrogen measurement (mass/volume) 22 mg/dL 7-18 Serum or plasma creatinine measurement (mass/volume) 0.93 mg/dL 0.60-1.30 Serum or plasma urea nitrogen/creatinine mass ratio 24 NRG Serum or plasma creatinine measurement with calculation of estimated glomerular filtration rate > NRG Lipid Panel - 06/20/17 10:46 C/HDL 5.3 3.7-6.7 Cholesterol 128 mg/dL 100-240 HDL 24 mg/dL 30-85 LDL-Calculated 0 Unable to calculate due to elevated triglycerides mg/dL 0-100 Trig 480 mg/dL 35-160 VLDL 96 mg/dL 0-42 Lipid Panel - 10/25/17 10:00 C/HDL 3.9 3.7-6.7 Cholesterol 128 mg/dL 100-240 HDL 33 mg/dL 30-85 LDL-Calculated 48 mg/dL 0-100 Trig 236 mg/dL 35-160 VLDL 47 mg/dL 0-42 Encounters ACCT No. Visit Date/Time Discharge Status Pt. Type Provider Facility Loc./Unit Complaint [id number] 11/19/2014 08:51:00 11/19/2014 23:59:59 CLS Outpatient YESENIA PUGA APRN [id number] 07/07/2013 11:11:00 07/07/2013 23:59:59 CLS Outpatient DOMENICO JUSTICE DO [id number] 12/29/2012 11:53:00 12/29/2012 23:59:59 CLS Outpatient YESENIA PUGA APRN [id number] 11/05/2011 09:06:00 11/05/2011 23:59:59 CLS Outpatient DOMENICO JUSTICE DO [id number] 06/02/2013 14:15:00 Document Registration [id number] 04/06/2013 11:59:00 Document Registration [id number] 04/06/2013 11:59:00 Document Registration [id number] 06/30/2015 11:59:30 ACT Document Registration [id number] 10/25/2017 09:52:00 10/25/2017 23:59:00 DIS Outpatient HAN BLAKELY [id number] 09/03/2017 13:01:00 09/03/2017 23:59:00 DIS Outpatient HAN BLAKELY [id number] 06/20/2017 10:31:00 06/20/2017 23:59:00 DIS Outpatient HAN BLAKELY [id number] 02/05/2018 11:00:00 02/05/2018 23:59:59 CLS Preadmit HAN BLAKELY MD [facility] CATH ABN STRESS TEST,CAD,HTN [id number] 01/06/2018 07:34:00 01/06/2018 23:59:59 CLS Outpatient BEVERLEY-GENOVEVA BENÍTEZ [facility] CARD I25.10 CAD [id number] 11/25/2017 08:30:00 11/25/2017 23:59:59 CLS Preadmit GENOVEVA CHAVEZ [facility] CARD I25.10 CAD [id number] 07/16/2016 08:59:00 07/16/2016 23:59:59 CLS Outpatient GENOVEVA CHAVEZ [facility] RAD CAROTID ARTERY STENOSIS [id number] 2016 08:22:00 2016 23:59:59 CLS Outpatient GENOVEVA CHAVEZ [facility] LAB CAD,CHF, CAROTID ARTERY STENOSIS,HLP [id number] 06/30/2015 11:58:00 06/30/2015 23:59:59 CLS Outpatient BEVERLEY-GENOVEVA BENÍTEZ [facility] RAD CAD,CHF,HTN, HLP [id number] 01/20/2014 07:13:00 01/20/2014 23:59:59 CLS Outpatient HAN BLAKELY MD [facility] RAD CAD,CHF,CAROTID STONSIS, HTN [id number] 12/24/2013 11:17:00 12/24/2013 23:59:59 CLS Outpatient HAN BLAKELY MD [facility] CARD CAD,CHF,CAROTID STENOSIS ,HTN [id number] 2016 08:20:00 Document Registration [id number] 12/08/2012 11:00:00 Document Registration [id number] 06/18/2012 06:09:00 Document Registration [id number] 06/16/2012 08:22:00 Document Registration [id number] 11/28/2011 07:02:00 Document Registration [id number] 09/06/2011 09:54:00 Document Registration [id number] 08/12/2017 10:40:00 08/12/2017 23:59:59 CLS Outpatient ABHAY PEREIRA, [facility]
[2018-02-26] MEDS ORDERED: NS IV 1000 ML 3,000 ML ONE (07:29)
[2018-02-26] MEDS ORDERED: LIDOCAINE 1% INJ 20 ML 20 ML VIAL ONE (07:29)
[2018-02-26] MEDS ORDERED: HEParin 1000 UNIT/ML (10ML VIAL) FOR BOLUS ONE (07:31)
[2018-02-26] MEDS ORDERED: NS IV 1000 ML 1,000 ML IV SCH ×3 (07:48→10:48)
[2018-02-26 08:16] LABS: HEMOGLOBIN 14.5 G/DL (13.3-17.7); MEAN PLATELET VOLUME 9.5 FL (7.4-10.4); RED BLOOD COUNT 4.4 10^6/uL (4.35-5.85); RED CELL DISTRIBUTION WIDTH 12.1 % (10.0-14.5); WHITE BLOOD COUNT 8.3 10^3/uL (4.3-11.0)
[2018-02-26 08:28] LABS: BILIRUBIN,URINE NEGATIVE (NEGATIVE); CLARITY,URINE CLEAR; COLOR,URINE YELLOW; GLUCOSE, URINE (UA) NEGATIVE (NEGATIVE); KETONES,URINE NEGATIVE (NEGATIVE); LEUKOCYTE ESTERASE ,URINE NEGATIVE (NEGATIVE); NITRITE,URINE NEGATIVE (NEGATIVE); PH,URINE 5 (5-9); PROTEIN,URINE NEGATIVE (NEGATIVE); UROBILINOGEN,URINE NORMAL (NORMAL)
[2018-02-26 08:30] LABS: PROTHROMBIN TIME PATIENT 13.1 SEC (12.2-14.7)
[2018-02-26 08:35] LABS: BACTERIA,URINE NEGATIVE /HPF; WBC,URINE 0-2 /HPF
--- NOTE | 2018-02-26 08:40 | Diagnostic Imaging Report ---
PATIENT HISTORY: ABN STRESS CAD HTN CHF. TECHNIQUE: Single frontal view of the chest COMPARISON: 06/16/2012 FINDINGS: Lung volumes are mildly large. There is eventration of the diaphragm. No focal consolidation is seen. There is no pleural effusion or pneumothorax. The cardio mediastinal silhouette is normal in size and contour. Sternotomy wires are noted. Surgical clips are seen in the left neck. IMPRESSION: Mildly large lung volumes with no acute pulmonary abnormality seen. Dictated by: Dictated on workstation # [id number]
[2018-02-26 08:41] LABS: ALANINE AMINOTRANSFERASE 25 U/L (0-55); ALBUMIN 4.9 GM/DL (3.2-4.5); ALKALINE PHOSPHATASE 53 U/L (40-136); BILIRUBIN,TOTAL 0.8 MG/DL (0.1-1.0); BUN/CREATININE RATIO 18; CARBON DIOXIDE 28 MMOL/L (21-32); CHLORIDE 104 MMOL/L (98-107); CHOLESTEROL 130 MG/DL (< 200); CREATININE SERUM 0.95 MG/DL (0.60-1.30); GFR ESTIMATED > 60; GLUCOSE 155 MG/DL (70-105); HDL CHOLESTEROL 34 MG/DL (40-60); POTASSIUM 3.8 MMOL/L (3.6-5.0); SODIUM 141 MMOL/L (135-145); TOTAL PROTEIN 7.6 GM/DL (6.4-8.2); TRIGLYCERIDES 291 MG/DL (<150); VLDL CHOLESTEROL 58 MG/DL (5-40)
[2018-02-26] MEDS ORDERED: RANI150T11 PO (09:11)
[2018-02-26] MEDS ORDERED: ROSU10TA PO (09:11)
[2018-02-26] MEDS ORDERED: LORA10TA7 PO (09:11)
[2018-02-26] MEDS ORDERED: OMEG-9 PO (09:11)
[2018-02-26] MEDS ORDERED: POLY17PO6 PO (09:11)
[2018-02-26] MEDS ORDERED: ACET-2469 PO ×2 (09:11)
[2018-02-26] MEDS ORDERED: SAWP1CAP PO (09:11)
[2018-02-26] MEDS ORDERED: ASPI-983 PO (09:11)
[2018-02-26] MEDS ORDERED: NIAC1CAP PO (09:11)
[2018-02-26] MEDS ORDERED: BENZ1LOZ42 MM (09:11)
[2018-02-26] MEDS ORDERED: [UNRECOGNIZED DRUG - CODE] PO (09:11)
[2018-02-26] MEDS ORDERED: CARV12.53 PO (09:11)
[2018-02-26] MEDS ORDERED: SUCR1TAB36 PO (09:11)
[2018-02-26] MEDS ORDERED: LISI2.5T PO (09:11)
--- NOTE | 2018-02-26 09:59 | Cardiac Procedure Note-CS/ASA ---
Pre-Procedure Note Pre-Op Procedure Note H&P Reviewed The H&P was reviewed, patient examined and no changes noted. Date H&P Reviewed: February 26, 2018 Time H&P Reviewed: 09:59 Conscious Sedation Pre-Proced Time Reviewed: 09:59 ASA Class: 3 Airway Mallampati Classification: ([place] appropriate class) I. II. III, IV Lungs Heart ASA score ASA 1: a normal healthy patient ASA 2: a patient with a mild systemic disease (mid diabetes, controlled hypertension, obesity x ASA 3: a patient with a severe systemic disease that limits activity (angina , COPD, prior Myocardial infarction) ASA 4: a patient with an incapacitating disease that is a constant threat to life (CHF, renal failure) ASA 5: a moribund patient not expected to survive 24 hrs. (ruptured aneurysm) ASA 6: a declared brain patient whose organs are being harvested. For emergent operations, add the letter E after the classification Grade 3 Sedation Plan: Analgesia, Amnesia, Plan communicated to team members, Discussed options with patient/fam, Discussed risks with patient/fam Note The patient is an appropriate candidate to undergo the planned procedure, sedation, and anesthesia. The patient immediately re-assessed prior to indication. HAN BLAKELY MD February 26, 2018 09:59
[2018-02-26] MEDS ORDERED: MIDAZOLAM 5 MG/5 ML (VERSED) VIAL ONE (10:02)
[2018-02-26] MEDS ORDERED: fentaNYL INJECTION 100 MCG/2 ML AMP ONE (10:02)
--- NOTE | 2018-02-26 10:50 | Discharge Inst-Post CATH ---
Discharge Inst-CATH Post Cardiac Cath D/C Inst Follow Up/Plan Appointment with Dr. Ribera's office in 2-4 weeks CARDIAC CATH DISCHARGE INSTRUCTIONS *Hold Metformin for 48 hours post heart cath. ACTIVITY * Go Home directly and rest. * Limit activity of the leg (or wrist if it was used) for 7 days including aerobics, swimming, jogging, bicycling, etc. * Restrict stair-climbing for 7 days if possible, if not, climb up with your non -cath leg, then bring together on the same step. * Avoid lifting, pushing, pulling or excessive movement of the affected extremity for 7 days. * Customary sexual activity may be resumed after 2 days-use caution not to use a position that strains or causes pain to the affected extremity. * No driving for 24 hours. * NO SMOKING. * Avoid straining for bowel movements for 7 days. * Gentle walking on level ground is allowed. * Returning to work will depend on the type of procedure and the results. Your doctor will discuss this with you. CALL YOUR DOCTOR FOR ANY OF THE FOLLOWING: *If bleeding from the puncture site occurs- Apply gentle pressure to site with clean cloth and call your doctor or EMS. * If a knot or lump forms under the skin, increases in size, or causes pain. * If bruising appears to be worsening or moving further down your leg instead of disappearing. * Temperature above 101 F. CARE OF YOUR GROIN INCISION; * Bruising or purple discoloration of the skin near the puncture site is common. * You may shower only, no bathtub bathing for 5 days. Be careful to avoid slipping as your leg may feel stiff. * If a closure device was used on your femoral artery, please see the attached guide regarding care of the device and your leg. * REMOVE the dressing from your groin the next day after your procedure in the shower. CARE OF YOUR WRIST INCISION; * Bruising or purple discoloration of the skin near the puncture site is common. * You may shower. * DO NOT submerge wrist. * Remove dressing in 24 hours. HAN RIBERA MD February 26, 2018 10:50
--- NOTE | 2018-02-26 10:54 | Cardiac Cath Report ---
Cardiac Cath Report Physician (s)/Senior Policy Associate (s) Physician HAN BLAKELY MD Pre-Procedure Diagnosis Pre-Procedure Diagnosis: CAD Post-Procedure Note Procedure Start Date: February 26, 2018 Name of Procedure: LHC, vein graft angiogram, NAJERA Findings/Procedure Note PROCEDURE NOTE: After explaining the procedure to the patient, all pros and cons were explained , all questions were answered. The patient signed the consent and then he was placed on the cardiac catheterization laboratory. Groin was prepped SL fashion local anesthesia was used. Sheath placed in the right femoral artery. [place] right and left catheter were used to access the coronary system.Vein Graft evaluated. NAJERA evaluated. Pigtail was used to access the left ventricular cavity. Left ventriculogram was not done, pressure was measured At the end of the procedure the sheath was removed. Closure device was used FINDINGS: Hemodynamics LV 130/9, end-diastolic pressure of 9 Aorta 136/71 mean of 92 ANATOMY: Left Main Left Anterior Descending is moderate to small in size, beyond the mid level the artery tapered down into small artery, the NAJERA to the LAD is occluded Left Circumflex is moderate in size with mild disease, the first obtuse marginal branch is occluded with patent vein graft to the first OM Right Coronory Artery is dominant with mild disease nonobstructive disease NAJERA to the LAD is occluded Vein Graft to the obtuse marginal branch is patent with good flow in the distal OM CONCLUSION: 1. Occluded NAJERA with moderate disease in the mid and distal LAD, the LAD tapered down into a small artery. Medical therapy is recommended 2. Patent vein graft to the first obtuse marginal branch 3. Otherwise mild to moderate coronary artery disease nonobstructive disease 4. Normal left ventricular end-diastolic pressure DISCUSSION AND RECOMMENDATION: Medical therapy is recommended no intervention is warranted Anesthesia Type: Conscious Sedation Estimated blood loss (mL): 10 ml Contrast Amount: 66 ml Total Radiation Dose: 248 mGy Post-Procedure Diagnosis Post-operative diagnosis: Coronary artery disease Peripheral arterial disease Hypertension Hyperlipidemia HAN BLAKELY MD February 26, 2018 10:54
[2018-02-26] MEDS ORDERED: PATIENT MAY USE OWN MEDS, ALL PO SCH (11:00)
== END 2018-02-26 16:25 | disposition home or self-care (01) ==
LOC: CATH 07:23 → SURG 11:39 → CATH 16:25
PROVIDERS: ATTEND Internal Medicine Cardiovascular Disease
DX: I25.10 Atherosclerotic heart disease of native coronary artery without angina pectoris (principal); I73.9 Peripheral vascular disease, unspecified; I10 Essential (primary) hypertension; E78.5 Hyperlipidemia, unspecified; Z11.2 Encounter for screening for other bacterial diseases; Z95.1 Presence of aortocoronary bypass graft
CPT/HCPCS: 36415; 71045; 80053; 80061; 81000; 85027; 85610; 85730; 87081; 93459